=== PATIENT | male | born 1995 | race Caucasian/White ===

== ENCOUNTER 2017-05-20 23:59 | Emergency (ER) | payer BC ==
[~2017-05-20] VITALS: Ht 177.8 cm; Wt 69.6 kg
[2017-05-21 00:13] VITALS: TEMP 36.4; Ht 177.8 cm; Wt 69.6 kg
[2017-05-21] MEDS ORDERED: PENI-82 PO (00:42)
[2017-05-21] MEDS ORDERED: PENICILLIN HOME PACK 500MG (4 DOSES)BTL PO ONE (00:45)
[2017-05-21 00:53] VITALS: BP 123/87; PULSE 60; O2SAT 97
--- NOTE | 2017-05-21 06:14 | EMERGENCY ROOM VISIT NOTE ---
History First contact with patient: 00:22 Chief Complaint: OTHER COMPLAINT Stated Complaint: SPLEEN PAIN DUE PAST INJURY/MAJOR TOOTH PAIN History of Present Illness The patient is a 22 year old male who presents to the Emergency Room with multiple vague complaints. The patient states that he had an injury to his spleen 10 years ago and he has intermittent left upper quadrant abdominal pain ever since. He states his pain has been more noticeable over the past year. He does not recall recent injury or trauma. The patient is also complaining of dental pain of his upper teeth in the back. The patient has not followed with a dentist. He has not had fever or chills. He rates his overall discomfort an 8/10. Review of Systems More than 10 systems were reviewed and otherwise negative with the exception of history of present illness. Past Medical/Surgical History No chronic medical disease Family History No pertinent family history Social History Housing Status: lives with roommate Current/Historical Medications Scheduled Penicillin V Potassium (Veetids), 500 MG PO QID Physical Exam Vital Signs Date Time Temp Pulse Resp B/P (MAP) Pulse Ox O2 Delivery O2 Flow Rate FiO2 05/21/17 00:53 60 18 123/87 97 05/21/17 00:13 36.4 69 20 144/82 98 Room Air Pain Rating (0-10): 8.0 Physical Exam VITALS: Vitals are noted on the nurse's note and reviewed by myself. Vital signs stable. GENERAL: Well-developed, well-nourished, white male, who is in no acute distress and resting comfortably. Patient is cooperative with the examination. MOUTH: Mucous membranes moist. Tonsils are not enlarged. Pharynx without erythema, blood, or exudate. Uvula midline. Airway patent. No evidence of Jose A's. Dentition overall poor repair. There is no obvious abscess on examination of the oropharynx. He has significant decay of the upper left and upper right molars, #1 and #16 teeth. NECK: Supple without nuchal rigidity. No lymphadenopathy. No thyromegaly. Cervical spine is nontender. HEART: Regular rate and rhythm without murmurs gallops or rubs. LUNGS: Clear to auscultation bilaterally without wheezes, rales or rhonchi. No retractions or accessory muscle use. ABDOMEN: Positive normal bowel sounds x 4. Soft, nontender, without masses or organomegaly. No guarding or rebound tenderness. MUSCULOSKELETAL: No muscle atrophy, erythema, or edema noted. Full range of motion without joint tenderness in all extremities. Medical Decision & Procedures Medications Administered Medications (Trade) Dose Ordered Sig/Jamshid Route Start Time Stop Time Status Last Admin Dose Admin Penicillin V Potassium (Pen-Vk 500MG Home Pack) 1 [facility] UD ONCE PO 05/21/17 00:45 05/21/17 00:46 DC 05/21/17 00:52 1 [facility] ED Course Physical exam and history were performed. Nursing notes, EMR, and Medication List were personally reviewed. Patient appears to have vague dental pain for the past several weeks. He has not contacted a dentist. Of note the patient is presenting to the emergency department at the same time as two of his roomates, all for vague pain related complaints. The patient himself does not have significant physical exam findings. He does have poor dentition and there is certainly the possibility of a dental infection. I will give the patient a course of Pen-Vee K and asking to use [id number] analgesics. I do not suspect he has a splenic injury as he has not had any recent trauma and he states that his pain has been ongoing for years. The patient is to follow with his primary care physician with any ongoing or persistent symptoms. He voiced understanding and was given discharge instructions as below. The chart was completed utilizing [employer] Speech Voice Recognition Software. Grammatical errors, random word insertions, pronoun errors, and incomplete sentences are an occasional consequence of this system due to software limitations, ambient noise, and hardware issues. Any formal questions or concerns about the content, text, or information contained within the body of this dictation should be directly addressed to the provider for clarification. . Medical Decision Differential diagnosis includes, but is not limited to: Dental pain, dental injury, dental infection, chronic abdominal pain, and others Impression Primary Impression: Pain, dental Departure Information Dispostion Home / Self-Care Condition GOOD Prescriptions Penicillin V Potassium (Veetids) 500 Mg Tab 500 MG PO QID for 10 Days, #40 TAB Prov: Lenard Beyer PA-C 05/21/17 Forms HOME CARE DOCUMENTATION FORM, IMPORTANT VISIT INFORMATION Patient Instructions My [facility] Additional Instructions You were seen and evaluated today on an emergency basis only. This is not a substitute for, or an effort to provide, complete comprehensive medical care. It is not possible to recognize and treat all injuries or illnesses in a single emergency department visit. For this reason it is recommended that you followup with a dentist as soon as possible for definitive care. Contact your insurance to determine if there are primary care physicians accepting new patients locally. For baseline pain relief you may alternate ibuprofen and acetaminophen every 4 hours for pain control. Take 600 mg ibuprofen (Advil) and then 4 hours later take 1000 mg acetaminophen (Tylenol). Do not take more than 3000 mg acetaminophen in a single day. Take Pen-Vee K 500 mg 4 times daily for the next 10 days. You are welcome to return to the emergency department anytime with new, worsening, or concerning symptoms.
== END 2017-05-21 00:53 | disposition home or self-care (01) ==
LOC: C.EDB 05-21 00:03
DX: K08.89 Other specified disorders of teeth and supporting structures (principal)